=== PATIENT | male | born 1975 | race Caucasian/White ===

== ENCOUNTER 2016-12-24 09:25 | Inpatient (IN) | payer BC, MEDICAID ==
[2016-12-24 10:09] LABS: Hematocrit 41 % (42-52); Hemoglobin 13.6 g/dl (14.0-18.0); Mean Corpuscular HGB Conc 33 g/dl (31-36); Mean Corpuscular Hemoglobin 32 pg (27-31); Mean Corpuscular Volume 96 fL (80-94); Mean Platelet Volume 8 um3 (7.4-10.4); Red Blood Count 4.27 10^6/ul (4.0-5.4); Red Cell Distribution Width 13 % (10.5-15); White Blood Count 14.4 10^3/ul (3.5-10.8)
--- NOTE | 2016-12-24 10:12 | ED ---
Psychiatric Complaint - HPI Summary HPI Summary: Patient arrives for a MHE. History is difficult to obtain from patient d/t flight of ideas, tangential thoughts and vague recent history of arrest. He has multiple abrasions over his right hand, left forearm and legs bilaterally. He states this happened the day before his arrest 2 weeks ago with some "drill bits" as well as tripping this morning over a dog. He states he was arrested for listening to music while his girlfriend wanted to sleep, when probed for more information, he states he doesn't remember why he was arrested. When asked what brings him in, he states "my mother." During examination he continues self-talk and is unable to answer questions directly. He denies pain or health problems. Denies drug or alcohol use although smells of ETOH on arrival. Patient states he is otherwise healthy and takes no medications. Denies urinary sxs, abd pain, extremity pain despite abrasions, PHAM, neck pain, N /V/C/D. No signs of infection around wounds and explained will clean up the wounds to prevent infection. - History Of Current Complaint Chief Complaint: EDMentalHealth Time Seen by Provider: 12/24/16 09:31 Hx Obtained From: Patient Onset/Duration: Gradual Onset Timing: Constant Severity Initially: Moderate Severity Currently: Moderate Character: Manic, Depressed, Frustrated Aggravating Factor(s): Recent Stress Alleviating Factor(s): Nothing Associated Signs And Symptoms: Positive: Hostile, Confused, Paranoid Behavior Has Suicidal: Reports: Thoughts - none currently and no plans - Risk Factor(s) Completed Suicide Risk Factors: Male, White [place] - Allergies/Home Medications Allergies/Adverse Reactions: Allergies Allergy/AdvReac Type Severity Reaction Status Date / Time No Known Allergies Allergy Verified 12/24/16 13:00 Home Medications: Home Medications Metoprolol Tartrate 5 mg PO DAILY 12/24/16 [History Confirmed 12/24/16] PMH/Surg Hx/FS Hx/Imm Hx Previously Healthy: Yes Infectious Disease History: Denies: Traveled Outside the [place] in Last 30 Days - Social History Occupation: Unemployed Lives: With Family Alcohol Use: Rare Hx Substance Use: No Substance Use Type: Reports: None Hx Tobacco Use: Yes Smoking Status (MU): Heavy Every Day Tobacco Smoker Do You Chew or Dip Tobacco: No Have You Smoked in the Last Year: No Review of Systems Constitutional: Negative ENT: Negative Cardiovascular: Negative Respiratory: Negative Genitourinary: Negative Positive: no symptoms reported, see HPI Musculoskeletal: Negative Skin: Negative Positive: Bruising - left forearm, Other - abrasions over right hand Neurological: Negative Positive: Anxious, Depressed All Other Systems Reviewed And Are Negative: Yes Physical Exam Triage Information Reviewed: Yes Vital Signs On Initial Exam: Initial Vitals Temp Pulse Resp BP 98.5 F 82 18 160/101 12/24/16 10:04 12/24/16 10:04 12/24/16 10:04 12/24/16 10:04 Vital Signs Reviewed: Yes Appearance: Positive: Well-Appearing, No Pain Distress, Well-Nourished Skin: Positive: Warm, Skin Color Reflects Adequate Perfusion, Other - abrasions over dorsum of right hand, left leg. left arm with bruising and ecchymosis Head/Face: Positive: Normal Head/Face Inspection Eyes: Positive: EOMI, PALAK, Conjunctiva Clear Neck: Positive: Supple, Nontender Respiratory/Lung Sounds: Positive: Clear to Auscultation, Breath Sounds Present Cardiovascular: Positive: Normal, RRR Musculoskeletal: Positive: Normal, Strength/ROM Intact Neurological: Positive: Normal, Sensory/Motor Intact, Alert, Oriented to Person Place, Time, Facial Symmetry Psychiatric: Positive: Anxious, Other - mood not appropriate - tangential with flight of ideas Diagnostics - Vital Signs Vital Signs Temp Pulse Resp BP 12/24/16 10:04 98.5 F 82 18 160/101 - Laboratory Result Diagrams: 12/24/16 09:34 12/24/16 09:34 Lab Statement: Any lab studies that have been ordered have been reviewed, and results considered in the medical decision making process. Course/Dx - Course Course Of Treatment: Patient with flight of ideas, tangential thoughts, thoughts of suicide although denies current thoughts or plan. Denies HI. Denies ETOH or drug use although smells of alcohol. History is difficult d/t tangential thoughts. Denies pain, health problems and takes no medications. Wounds over right hand and left toe evaluated, cleaned and dressed. No signs of infection. Patient requesting benadryl for erythemaous spots over dorsum of feet bilaterally after arrival. He feels this is an allergic reaction to the cat food he ate earlier this morning. Provider given 25mg benadryl with relief. Assessment/Plan: admission to [facility]. Signed out to Dr. Collazo at 3:30pm. Patient stable and awaiting MHE. - Differential Dx/Clinical Impression Differential Diagnosis/HQI/PQRI: Positive: Alcohol Intoxication, Anxiety, Bipolar Disorder, Depression Provider Diagnosis: Psychosis Discharge - Discharge Plan Condition: Stable Disposition: ADMITTED TO [facility]
[2016-12-24 10:13] LABS: Urine Bacteria Absent (Absent); Urine Bilirubin Negative (Negative); Urine Glucose Negative (Negative); Urine Nitrite Negative (Negative)
[2016-12-24 10:19] LABS: Benzodiazepine Urine Screen None Detected (None Detect)
[2016-12-24 10:22] LABS: ALT 115 U/L (7-52); AST 138 U/L (13-39); Albumin 4.4 g/dL (3.2-5.2); Alkaline Phosphatase 72 U/L (34-104); Anion Gap 11 mmol/L (2-11); BUN/Creatinine Ratio 10.4 (8-20); Blood Urea Nitrogen 10 mg/dL (6-24); CO2 Carbon Dioxide 21 mmol/L (22-32); Calcium 8.9 mg/dL (8.6-10.3); Chloride 102 mmol/L (101-111); EGFR African American 112.1 (>60); EGFR Non-African American 87.2 (>60); Globulin 3.2 g/dL (2-4); Glucose 91 mg/dL (70-100); Potassium 3.6 mmol/L (3.5-5.0); Sodium 134 mmol/L (133-145); Total Protein 7.6 g/dL (6.4-8.9)
[2016-12-24 10:23] LABS: Acetaminophen < 15 mcg/mL; Alcohol 94 mg/dL (<10); Salicylate < 2.50 mg/dL (<30)
[2016-12-24 10:33] LABS: TSH (Thyroid Stimulating Horm) 1.41 mcIU/mL (0.34-5.60)
[2016-12-24] MEDS ORDERED: diPHENhydraMINE PO* 25 MG PO ONE (12:08)
[2016-12-24] MEDS ORDERED: Nicotine Inhaler* 10 MG AMP INH ONE (12:56)
[2016-12-24] MEDS ORDERED: Mouth Piece, Nicotine* 1 EACH CARTRIDGE INH PRN (12:56)
--- NOTE | 2016-12-24 17:32 | ED ---
Ish [place] Janilya, scribed for Trace Collazo MD on 12/24/16 at 1717 . Progress - Progress Note Progress Note: Pt was evaluated for mental health by Dr. De Souza. He will admit pt into his services. Pt's diagnosis is psychosis. - Consult/PCP Time Called: 15:02 Course/Dx - Course Course Of Treatment: Patient with flight of ideas, tangential thoughts, thoughts of suicide although denies current thoughts or plan. Denies HI. Denies ETOH or drug use although smells of alcohol. History is difficult d/t tangential thoughts. Denies pain, health problems and takes no medications. Wounds over right hand and left toe evaluated. No signs of infection. Will clean and dress to prevent infection. Patient arrested. - Diagnoses Provider Diagnoses: Psychosis Discharge - Discharge Plan Condition: Stable Disposition: ADMITTED TO [facility] Referrals: No Primary Care Phys,NOPCP [Primary Care Provider] - The documentation as recorded by the Ish jay Janilya accurately reflects the service I personally performed and the decisions made by , Trace Collazo MD.
[2016-12-24] MEDS ORDERED: Acetaminophen TAB* 325 MG PO PRN (20:38)
[2016-12-24] MEDS ORDERED: Al Hydrox/Mg Hydrox/Simet LIQ* 30 ML UDC PO PRN (20:38)
[2016-12-24] MEDS: Nicotine Inhaler* 10 MG AMP INH PRN ×2 (20:54→23:15)
[2016-12-24] MEDS: Mouth Piece, Nicotine* 1 EACH CARTRIDGE INH SCH ×2 (20:54→23:15)
[2016-12-24] MEDS: Nicotine GUM* 2 MG PO PRN (23:15)
[2016-12-24] MEDS: chlorproMAZINE TAB* 50 MG Q6H PRN AGITATION PO (23:27)
[2016-12-25] MEDS: Vitamin THERAPEUTIC TAB PO SCH (07:59)
[2016-12-25] MEDS: Nicotine Inhaler* 10 MG AMP INH PRN ×3 (09:03→16:34)
--- NOTE | 2016-12-25 15:18 | ADMNOTE ---
Identification - Identify Employment Status: Employed Hx Psychiatric Hospitalization: Yes - PRevious hospitalizations Prior Psychiatric Diagnosis: Bipolar disorder with psychotic features History - Objective HPI: Patient brought to hospital due to auditory hallucinations. He presented in the ED as disorganized. He was also observed speaking to his father "Ulysses" when he was being evaluated. He also presented as both agitated and irritated. During todays clinical interview, he admitted to auditory hallucinations that interfered with "thinking." He also admitted to considerable ETOH and cannabis use. Exam Appearance: Thin Framed Hygiene: Normal - Disheveled Psychomotor Activities: Normal Exhibits Abnormal Movement: No Attitude and Relatedness: Superficially Cooperative Eye Contact: Fair - Speech Quality: Unpressured Latencies: Normal Quantity: Appropriate - Answered questions with minimal elaboration Patient's Decription of Mood: "Great" Observed Affect: Unvariable - constricted Patient's Thought Process: Disorganized, Over Inclusive, Impoverished Thought Content: No Passive Wish, No Suicidal Planning, No Homicidal Ideation, No Paranoid Ideation Experiencing Hallucinations: Yes Type of Hallucinations: Visual: No, Auditory: Yes, Command: No - Denies Orientation: Yes Intact, Yes Orientated to Time, Yes Orientated to Place, Yes Orientated to Person Impulse Control: Tenuous Insight and Judgement: Impaired Impression - Impression Clinical Impression: 41 year old male who presents to [facility] with auditory hallucinations and disorganized thought processes. Unable to care for self at time of admission, admitted under 9:39 status. Admitted for psychiatric stabilization. Plan - Treatment Plan Continued Medication Management: Consider Medication Medications: Current Medications Acetaminophen (Tylenol Tab*) 650 mg PO Q4H PRN PRN Reason: PAIN or TEMP > 101 F Al Hydrox/Mg Hydrox/Simethicone (Maalox Plus*) 30 ml PO Q4H PRN PRN Reason: INDIGESTION Chlorpromazine HCl (Thorazine Tab*) 50 mg PO Q6H PRN PRN Reason: AGITATION Last Admin: 12/24/16 23:27 Dose: 50 mg Device (Nicotine Mouth Piece*) 1 each INH .USE WITH NICOTROL PRN PRN Reason: CRAVING Last Admin: 12/24/16 13:31 Dose: 1 each Device (Nicotine Mouth Piece*) 1 each INH .CARTRIDGE JOO Last Admin: 12/24/16 23:15 Dose: 1 each Diphenhydramine HCl (Benadryl Po*) 50 mg PO BEDTIME PRN PRN Reason: INSOMNIA Last Admin: 12/24/16 23:27 Dose: 50 mg Multivitamins (Theragran Tab*) 1 tab PO DAILY JOO Last Admin: 12/25/16 07:59 Dose: 1 tab Nicotine (Nicotine Inhaler*) 10 mg INH Q2H PRN PRN Reason: CRAVING Last Admin: 12/25/16 12:40 Dose: 10 mg Nicotine Polacrilex (Nicotine Gum*) 2 mg PO Q2H PRN PRN Reason: CRAVING Last Admin: 12/24/16 23:15 Dose: 2 mg - Discharge Plan Discharge Plan: Inpatient Hospitalization
[2016-12-25] MEDS: Nicotine GUM* 2 MG PO PRN ×2 (18:39→23:22)
--- NOTE | 2016-12-25 22:11 | HP ---
Amended report to enter co-signature on report. INITIAL PSYCHIATRIC ASSESSMENT: DATE OF ADMISSION: 12/24/16 SUPERVISING/ATTENDING PSYCHIATRIST FOR THIS CASE: Mike De Souza MD IDENTIFYING INFORMATION: The patient is a 41-year-old white male admitted to this facility on 12/24/16. Admitting status is 9.39. The patient was seen and examined. The chart was reviewed and the case was discussed with clinical staff available at the time of the visit. CHIEF COMPLAINT/REASON FOR ADMISSION: The patient states "repeated cases of what is going on, you know boredom." HISTORY OF PRESENT ILLNESS: The patient was brought to [facility] via private vehicle. Apparently during the initial psychiatric assessment, he was unable to provide information secondary to impairment and disorganization. He was apparently experiencing auditory hallucinations and was observed by the emergency department personnel to be speaking to his father during the psychiatric evaluation. He became quite agitated and irritable during the evaluation. Today during the clinical interview, the patient was somewhat aloof as to the nature of his presenting symptoms and what had brought him to the hospital. 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 According to past records from 2009, the patient was hospitalized here at [facility] and again in 2007. At that time, he was apparently diagnosed with bipolar disorder and was experiencing manic psychosis. He also carries a diagnosis of attention deficit hyperactivity disorder and currently sees Dr. Zuñiga. He denies any history of suicide attempt. FAMILY PSYCHIATRIC HISTORY: The patient denied the same; however, according to old records, the patient's mother was diagnosed with ADHD. His father had problems with alcohol addiction and the grandfather was diagnosed with bipolar disorder. PSYCHOSOCIAL HISTORY: The patient is from [place], [place]. He has lived in many places including [place] and [facility] as well as [place]. He graduated high school, attended some college at [employer], where he stated he was studying "[employer]." Per old records, the patient has a twin brother who was injured apparently in childbirth and was disabled, eventually dying at age 20. 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 He does report that he is . SUBSTANCE USE HISTORY: The patient does admit that he uses alcohol 7 days a week. He will have a few "scotches and beers." He also admits to daily marijuana use and occasional cocaine use. He denies any other illicit drugs. According to the past psychiatric assessment completed by Dr. Goodne in 2009, the patient began using marijuana at approximately age 24. REVIEW OF SYSTEMS: General: The patient denies fever, chills, or night sweats. Sleep: He reports that he has good sleep. Energy: He reports good energy. Appetite: He states that his appetite is decreased without his marijuana. HEENT: He currently denying any changes in vision; however, he does report that he experienced loss of hearing in his left ear last summer, which eventually did return. Cardiovascular: He denies chest pain or palpitations. Pulmonary: He denies shortness of breath. Gastrointestinal: He denies abdominal pain, nausea, vomiting, or diarrhea. Genitourinary/Reproductive: He denies dysuria or associated difficulty. Neurologically, he is denying numbness , tingling or paresthesias. Endocrine//Hematopoietic/Lymphatic: He denies any issues. PHYSICAL EXAMINATION GENERAL APPEARANCE: The patient is alert and cooperative, appears to be in no acute distress at the time of the exam. HEENT: Head is normocephalic, atraumatic. NECK: Appears normal on inspection. RESPIRATORY: No respiratory distress. Occasional expiratory wheeze noted, which seem to clear when the patient coughed or cleared his throat. CARDIAC: Rate is 106. No rubs or gallops noted. ABDOMEN: Nontender, nondistended, symmetrical without evidence of distention or guarding. MUSCULOSKELETAL: The patient demonstrates full range of motion. Extremities: Not edematous. NEUROLOGIC: The patient is alert and oriented x3 with no focal neuro deficits. SKIN: The patient has multiple scars and lesions over hands, which he describes came from "working in construction." REVIEW OF LABORATORY DATA: Undertaken at this time, the following abnormals are noted: White blood cell count is elevated at 14.4, hemoglobin is low at 13.6, hematocrit is low at 41, MCV is elevated at 96, MCH is elevated at 32. Neutrophil percentage is elevated at 84, lymphocyte percentage is low at 7.9, absolute neutrophil count is elevated at 12.1, absolute monos elevated at 1.1, carbon dioxide is low at 21, total bilirubin is elevated at 1.3, AST is elevated 138, ALT is elevated at 115. Urinalysis reveals 1+ urine protein, trace urine ketones and 1+ urine blood, urine rbc's 1+, hyaline casts are present. Urine toxicology indicates presumptive positive for cannabinoids. MENTAL STATUS EXAM: The patient is of slender build and appears older than his stated age with fair grooming and hygiene noted. He is wearing blue jeans and a button up shirt. On gross examination, he appears to have no overt physical deformities. Attitude towards the examiner was passively cooperative. He does ambulate with a steady gait. He did not appear to be demonstrating any noteworthy mannerisms, gestures, or tics. His activity level appeared to be within normal limits with no overt evidence of psychomotor excitation or retardation noted. He is is alert without evidence of confusion to person, place, time, or event. Speech was clear, goal directed and spontaneous; however , minimal. He did respond to questions, but was not forthcoming or elaborative in responses. The patient did make good eye contact. Self-reported mood is euthymic. The patient is denying anxiety at this time. Affect somewhat constricted. The patient is denying visual hallucinations; however, when questioned about auditory hallucinations, he did admit to hearing "clicking and clacking" which he states interferes with his thought processes. When questioned regarding paranoia, he denied same. He did not appear to be demonstrating any overt delusional processes. Judgment and insight are impaired. Intellectual ability: General fund of knowledge roughly average. He is currently denying suicidal and/or homicidal ideation and is future oriented. CLINICAL IMPRESSION: The patient is a 41-year-old white male who presented to the emergency department on a voluntary status secondary to auditory hallucination and what appeared to be visual hallucination as well as disorganized thought processes. He was admitted under 9.39 status secondary to the aforementioned symptoms as he was clearly at that time incapable of caring for himself. The patient does admit to use of Adderall, which he receives from a local psychiatrist. It is unclear as to whether or not he is taking it as prescribed; however, and he also has not been taking any of his prescribed medications per collateral contact obtained from information given by the patient's mother to nursing staff. ADMITTING DIAGNOSIS: Rule out bipolar disorder with psychotic features versus substance-induced psychosis. PLAN OF TREATMENT: Admit to behavioral services unit. Diet will be regular. Vital signs per unit protocol. Activity as tolerated with restrictions to the unit. The patient will participate in treatment planning activities, individual , group, and milieu therapy as well as medication management sessions and discharge planning until he is stable or referred to a higher level of care. TREATMENT GOAL: Stabilization. PROGNOSIS: Fair. ESTIMATED LENGTH OF STAY: 5 to 7 days. DISCHARGE CRITERIA: The patient will be discharged when he is no longer a risk to himself or others and has met the criteria set forth by the treatment team for discharge. The case was reviewed and discussed with Dr. De Souza who concurred with assessment, clinical impression as well as initial plan of [place] [id number]/[facility] #: [id number] CECILIO
[2016-12-25] MEDS: chlorproMAZINE TAB* 50 MG Q6H PRN AGITATION PO (23:42)
[2016-12-26] MEDS: Nicotine GUM* 2 MG PO PRN ×3 (07:18→13:21)
[2016-12-26] MEDS: Vitamin THERAPEUTIC TAB PO SCH (10:02)
--- NOTE | 2016-12-26 14:46 | PN ---
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 He reports he is worried about contamination from plastic of water in plastic bottles. He reports he only uses Adderall when he is working, and that his last use was 4.6.17. He reports that he spent several hours in [facility] after police responded to a domestic dispute with his in [place] on about that date. He tells me that he gets a statin and metoprolol on prescription from providers at [facility] in [place], and would like to resume these medications. [facility] reports that these are: simvastatin 20 mg daily and metoprolol tartrate 12.5 mg bid from Cheyanne Ravi MD, and Adderall 10 mg tid from Mitchell Zuñiga MD. Guillermo reports that he does not overuse Adderall, and that he only uses it when he is working, and that it helps him focus without notable side effects. He agrees to allow us to gather collateral from his mother and friends in [place]. Objective - Appearance Appearance: Well Developed/Nourished, Healthy Appearing Dysmorphic Features: No Hygiene: Normal Grooming: Fairly Well Kept - Behavior Psychomotor Activities: Normal Exhibits Abnormal Movement: No - Attitude and Relatedness Attitude and Relatedness: Cooperative Eye Contact: Poor - Speech Quality: Unpressured Latencies: Normal Quantity: Appropriate - Mood Patient's Decription of Mood: "Good" - Affect Observed Affect: Fair Affect Consistent with: Euthymia - Thought Process Patient's Thought Process: Coherent, Circumstantial Thought Content: No Passive Wish, No Suicidal Planning, No Homicidal Ideation, No Paranoid Ideation - Sensorium Experiencing Hallucinations: Yes Type of Hallucinations: Visual: No, Auditory: Yes - Father's voice, Command: No - Level of Consciousness Level of Consciousness: Alert Orientation: Yes Intact, Yes Orientated to Time, Yes Orientated to Place, Yes Orientated to Person - Impulse Control Impulse Control: Intact - Insight and Judgement Insight and Judgement: Poor - Group Participation Particating in Group Activities: Yes - Medication Management Medication Management Adherence: Yes Assessment - Assessment Merits Inpatient Hospitalization: For Immediate Safety, For Stabilization, For Discharge Planning Inpatient DSM-IV Dx: Psychosis NOS. r/o substance-induced psychosis Clinical Impression: Guillermo Dobson is a 41 year-old man admitted due to disorganized thought and behavior. He reports a history of abuse of alcohol and marijuana. He remains moderately disorganized today. He denies any dangerous intent or plan. He reports a restraining order in place from his girlfriend or , so contacting her might put him in jeopardy. We will be gathering collateral from his mother and friends as he permits. Continued hospitalization is indicated until he has adequately organized thought and behavior and thereby reduced risk of harm due to inadequate self-care. Plan - Plan Treatment Plan: Name: GUILLERMO DOBSON Birthdate: 1975 [id number] Gather collateral. Restart statin, metoprolol. Monitor MS and safety. Encourage groups and milieu. Medications: Current Medications Acetaminophen (Tylenol Tab*) 650 mg PO Q4H PRN PRN Reason: PAIN or TEMP > 101 F Al Hydrox/Mg Hydrox/Simethicone (Maalox Plus*) 30 ml PO Q4H PRN PRN Reason: INDIGESTION Chlorpromazine HCl (Thorazine Tab*) 50 mg PO Q6H PRN PRN Reason: AGITATION Last Admin: 12/25/16 23:42 Dose: 50 mg Device (Nicotine Mouth Piece*) 1 each INH .USE WITH NICOTROL PRN PRN Reason: CRAVING Last Admin: 12/24/16 13:31 Dose: 1 each Device (Nicotine Mouth Piece*) 1 each INH .CARTRIDGE JOO Last Admin: 12/24/16 23:15 Dose: 1 each Diphenhydramine HCl (Benadryl Po*) 50 mg PO BEDTIME PRN PRN Reason: INSOMNIA Last Admin: 12/25/16 23:42 Dose: 50 mg Multivitamins (Theragran Tab*) 1 tab PO DAILY JOO Last Admin: 12/26/16 10:02 Dose: 1 tab Nicotine (Nicotine Inhaler*) 10 mg INH Q2H PRN PRN Reason: CRAVING Last Admin: 12/25/16 16:34 Dose: 10 mg Nicotine Polacrilex (Nicotine Gum*) 2 mg PO Q2H PRN PRN Reason: CRAVING Last Admin: 12/26/16 13:21 Dose: 2 mg - Discharge Plan Discharge Plan: Outpatient Follow Up
[2016-12-26] MEDS: Nicotine Inhaler* 10 MG AMP INH PRN (15:47)
[2016-12-26] MEDS: Atorvastatin* 10 MG TAB PO SCH (20:25)
[2016-12-26] MEDS: Metoprolol Tartrate TAB* 25 MG PO SCH (22:30)
[2016-12-27] MEDS: chlorproMAZINE TAB* 50 MG Q6H PRN AGITATION PO (00:29)
[2016-12-27] MEDS: Nicotine Inhaler* 10 MG AMP INH PRN ×5 (01:15→21:58)
[2016-12-27] MEDS: Vitamin THERAPEUTIC TAB PO SCH (09:17)
[2016-12-27] MEDS: Metoprolol Tartrate TAB* 25 MG PO SCH ×2 (09:17→21:56)
--- NOTE | 2016-12-27 10:58 | PN ---
Subjective - Subjective Service Type: 30205 Hosp care 25 min moderate complexity Subjective: Maxi reports continued auditory hallucinations, saying he prefers not to give detailed report of them as he feels he will benefit from simply ignoring them. He gives equivocal report of possible paranoid ideation, with the same plan to ignore these thoughts. He declines a trial of antipsychotic, saying he prefers instead to restart lithium, which he recalls having taken twice daily with a little pill in the morning and a large pill at bedtime. He voiced understanding and acceptance of main toxicity risks of lithium of renal and thyroid damage, saying he expects benefits that will outweigh these risks. He reports having done well in the past taking 5 mg of Adderall every morning ' like a cup of coffee'. He reports that when he was at [place], he took Ritalin , which gave him a high, but that the Adderall at the dose he takes it does not give him a high. He feels that Dr Zuñiga has been a responsible prescriber for him, but agrees that he might benefit from being in the care of a clinic with coordination between multiple providers. He hopes to stay in [place] after he closes on a house here. Complains of pain from sciatica. Objective - Appearance Appearance: Healthy Appearing Dysmorphic Features: No Hygiene: Normal Grooming: Well Kept - Behavior Psychomotor Activities: Normal Exhibits Abnormal Movement: No - Attitude and Relatedness Attitude and Relatedness: Guarded - , politely, and cooperative Eye Contact: Good - Speech Quality: Unpressured Latencies: Normal Quantity: Appropriate - Mood Patient's Decription of Mood: "Okay" - Affect Observed Affect: Fair Affect Consistent with: Euthymia - Thought Process Patient's Thought Process: Coherent, Goal Directed - less disorganized in our meeting today Thought Content: Yes Paranoid Ideation - equivocally stated, No Passive Wish, No Suicidal Planning, No Homicidal Ideation - Sensorium Type of Hallucinations: Visual: No, Auditory: Yes - did not elaborate on content , Command: No - Level of Consciousness Level of Consciousness: Alert Orientation: Yes Intact, Yes Orientated to Time, Yes Orientated to Place, Yes Orientated to Person - Impulse Control Impulse Control: Intact - Insight and Judgement Insight and Judgement: Poor - Group Participation Particating in Group Activities: Yes Assessment - Assessment Merits Inpatient Hospitalization: For Stabilization, For Discharge Planning Inpatient DSM-IV Dx: Psychosis NOS. r/o substance-induced psychosis. reported today history of bipolar disorder Clinical Impression: Assumed care on day 2, 12.26.17: Maxi Dobson is a 41 year-old man admitted due to disorganized thought and behavior. He reports a history of abuse of alcohol and marijuana. He remains moderately disorganized today. He denies any dangerous intent or plan. He reports a restraining order in place from his girlfriend or , so contacting her might put him in jeopardy. We will be gathering collateral from his mother and friends as he permits. Continued hospitalization is indicated until he has adequately organized thought and behavior and thereby reduced risk of harm due to inadequate self-care. Day 3, 12.27.17: Maxi requests to start lithium, declines for now antipsychotic medications despite continued AH/?PI. More organized in conversation with me today. Plan - Plan Treatment Plan: Name: MAXI DOBSON Birthdate: 1975 [id number] Add lithium 300 mg bid (Cr 0.96, TSH 1.41). Gather collateral. Restart statin , metoprolol. Monitor MS and safety. Encourage groups and milieu. Continued Medication Management: Different Medication Medications: Current Medications Acetaminophen (Tylenol Tab*) 650 mg PO Q4H PRN PRN Reason: PAIN or TEMP > 101 F Al Hydrox/Mg Hydrox/Simethicone (Maalox Plus*) 30 ml PO Q4H PRN PRN Reason: INDIGESTION Atorvastatin Calcium (Lipitor*) 10 mg PO 1700 [facility] Last Admin: 12/26/16 20:25 Dose: 10 mg Chlorpromazine HCl (Thorazine Tab*) 50 mg PO Q6H PRN PRN Reason: AGITATION Last Admin: 12/27/16 00:29 Dose: 50 mg Device (Nicotine Mouth Piece*) 1 each INH .USE WITH NICOTROL PRN PRN Reason: CRAVING Last Admin: 12/24/16 13:31 Dose: 1 each Device (Nicotine Mouth Piece*) 1 each INH .CARTRIDGE [facility] Last Admin: 12/24/16 23:15 Dose: 1 each Diphenhydramine HCl (Benadryl Po*) 50 mg PO BEDTIME PRN PRN Reason: INSOMNIA Last Admin: 12/27/16 00:29 Dose: 50 mg Metoprolol Tartrate (Lopressor Tab*) 12.5 mg PO BID [facility] Last Admin: 12/27/16 09:17 Dose: 12.5 mg Multivitamins (Theragran Tab*) 1 tab PO DAILY [facility] Last Admin: 12/27/16 09:17 Dose: 1 tab Nicotine (Nicotine Inhaler*) 10 mg INH Q2H PRN PRN Reason: CRAVING Last Admin: 12/27/16 09:16 Dose: 10 mg Nicotine Polacrilex (Nicotine Gum*) 2 mg PO Q2H PRN PRN Reason: CRAVING Last Admin: 12/26/16 13:21 Dose: 2 mg - Discharge Plan Discharge Plan: Outpatient Follow Up Outpatient Program: [facility]
[2016-12-27] MEDS: Atorvastatin* 10 MG TAB PO SCH (16:50)
[2016-12-27] MEDS: Mouth Piece, Nicotine* 1 EACH CARTRIDGE INH SCH (16:52)
[2016-12-27] MEDS: Lithium Carbonate TAB* 300 MG PO SCH (21:57)
[2016-12-28] MEDS: chlorproMAZINE TAB* 50 MG Q6H PRN AGITATION PO (00:30)
[2016-12-28] MEDS: Lithium Carbonate TAB* 300 MG PO SCH ×2 (09:20→20:41)
[2016-12-28] MEDS: Vitamin THERAPEUTIC TAB PO SCH (09:20)
[2016-12-28] MEDS: Metoprolol Tartrate TAB* 25 MG PO SCH ×2 (09:20→21:11)
[2016-12-28] MEDS: Nicotine Inhaler* 10 MG AMP INH PRN ×3 (09:22→20:53)
--- NOTE | 2016-12-28 14:13 | PN ---
Subjective - Subjective Service Type: 21028 Hosp care 25 min moderate complexity Subjective: Received call this morning from Maxi' mother. Spoke with her today. She reports: 1. First signs of mental illness late teens with odd behaviors such as driving off without paying for gas, episodes of profligate spending. 2. 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 3. She thinks stimulants have been irresponsibly prescribed by both Dr Spence and Dr Zuñiga, in that he was not adequately monitored while taking them and they may have worsened his mental illness, which she believes is schizoaffective disorder bipolar type. 4. She estimates Maxi has had about 9 psychotic breaks in his life. 5. 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 6. She could meet with us here Monday. 7. She does not want her son to be under the care of Dr Zuñiga and called him to tell him this. She feels good about follow up care at [facility]. Maxi reports continued AH, last occurrence last evening around bedtime. He remains politely guarded, so report lacks details. He reports paranoia of ' people out to get [him]'. He had odd/paranoid behavior last evening, including throwing out all his toiletries and sleeping at the door to the nurse's station. He refused lithium last night, saying he would take it this morning, then did not take it this morning. He says he does not want to take an atypical antipsychotic medication because it sends too much profit to pharmaceutical companies. He agrees to take lithium and chlorpromazine. Objective - Appearance Appearance: Healthy Appearing Dysmorphic Features: No Hygiene: Normal Grooming: Well Kept - Behavior Psychomotor Activities: Normal Exhibits Abnormal Movement: No - Attitude and Relatedness Attitude and Relatedness: Guarded Eye Contact: Fair - Speech Quality: Unpressured Latencies: Normal Quantity: Appropriate - Mood Patient's Decription of Mood: "Good" - Affect Observed Affect: Fair Affect Consistent with: Euthymia - with notable anxiety too - Thought Process Patient's Thought Process: Coherent, Goal Directed - mostly, Disorganized - versus guarded at other times Thought Content: Yes Paranoid Ideation, No Passive Wish, No Suicidal Planning, No Homicidal Ideation - Sensorium Experiencing Hallucinations: Yes Type of Hallucinations: Visual: No, Auditory: Yes, Command: No - Level of Consciousness Level of Consciousness: Alert Orientation: Yes Intact, Yes Orientated to Time, Yes Orientated to Place, Yes Orientated to Person - Impulse Control Impulse Control: Intact - Insight and Judgement Insight and Judgement: Poor - Group Participation Particating in Group Activities: No Group Participation Comments: declines most groups - Medication Management Medication Management Adherence: Partial - declines lithium, says he wants to get good sleep using Thorazine instead and see if he gets better that way Assessment - Assessment Merits Inpatient Hospitalization: For Stabilization, For Discharge Planning Inpatient DSM-IV Dx: Psychosis NOS. r/o substance-induced psychosis. reported today history of bipolar disorder Clinical Impression: Assumed care on day 2, 17: aMxi Dobson is a 41 year-old man admitted due to disorganized thought and behavior. He reports a history of abuse of alcohol and marijuana. He remains moderately disorganized today. He denies any dangerous intent or plan. He reports a restraining order in place from his girlfriend or , so contacting her might put him in jeopardy. We will be gathering collateral from his mother and friends as he permits. Continued hospitalization is indicated until he has adequately organized thought and behavior and thereby reduced risk of harm due to inadequate self-care. Day 3, 12.27.17: Maxi requests to start lithium, declines for now antipsychotic medications despite continued AH/?PI. More organized in conversation with me today. Day 4, 17: Maxi continues to refuse effective medications against his psychotic presentation. He remains politely guarded. He is not attending groups. He feels he can get better by getting adequate sleep using Thorazine, despite having yesterday agreed to lithium as a medication that had been effective for him in the past. Plan - Plan Treatment Plan: Name: MAXI DOBSON Birthdate: 1975 [id number] Encourage compliance with lithium 300 mg bid (Cr 0.96, TSH 1.41). Monitor MS and safety. Encourage groups and milieu. Revisit antipsychotic regimen with Maxi, with possibility he can agree to Abilify, which he has taken in the past. Medications: Current Medications Acetaminophen (Tylenol Tab*) 650 mg PO Q4H PRN PRN Reason: PAIN or TEMP > 101 F Al Hydrox/Mg Hydrox/Simethicone (Maalox Plus*) 30 ml PO Q4H PRN PRN Reason: INDIGESTION Atorvastatin Calcium (Lipitor*) 10 mg PO 1700 [facility] Last Admin: 12/27/16 16:50 Dose: 10 mg Chlorpromazine HCl (Thorazine Tab*) 50 mg PO Q6H PRN PRN Reason: AGITATION Last Admin: 12/28/16 00:30 Dose: 50 mg Device (Nicotine Mouth Piece*) 1 each INH .USE WITH NICOTROL PRN PRN Reason: CRAVING Last Admin: 12/24/16 13:31 Dose: 1 each Device (Nicotine Mouth Piece*) 1 each INH .CARTRIDGE [facility] Last Admin: 12/27/16 16:52 Dose: 1 each Diphenhydramine HCl (Benadryl Po*) 50 mg PO BEDTIME PRN PRN Reason: INSOMNIA Last Admin: 12/28/16 00:30 Dose: 50 mg [place] Carbonate ([place] Carbonate Tab*) 300 mg PO BID [facility] Last Admin: 12/28/16 09:20 Dose: Not Given Metoprolol Tartrate (Lopressor Tab*) 12.5 mg PO BID [facility] Last Admin: 12/28/16 09:20 Dose: Not Given Multivitamins (Theragran Tab*) 1 tab PO DAILY [facility] Last Admin: 12/28/16 09:20 Dose: 1 tab Nicotine (Nicotine Inhaler*) 10 mg INH Q2H PRN PRN Reason: CRAVING Last Admin: 12/28/16 09:22 Dose: 10 mg Nicotine Polacrilex (Nicotine Gum*) 2 mg PO Q2H PRN PRN Reason: CRAVING Last Admin: 12/26/16 13:21 Dose: 2 mg - Discharge Plan Discharge Plan: [facility]
[2016-12-28] MEDS: Atorvastatin* 10 MG TAB PO SCH (16:35)
[2016-12-29] MEDS: chlorproMAZINE TAB* 50 MG Q6H PRN AGITATION PO ×2 (00:05→21:24)
[2016-12-29] MEDS: Mouth Piece, Nicotine* 1 EACH CARTRIDGE INH SCH (00:05)
[2016-12-29] MEDS: Nicotine Inhaler* 10 MG AMP INH PRN ×7 (00:05→20:48)
[2016-12-29] MEDS: Nicotine GUM* 2 MG PO PRN ×2 (00:55→21:07)
[2016-12-29] MEDS: Vitamin THERAPEUTIC TAB PO SCH (08:27)
[2016-12-29] MEDS: Lithium Carbonate TAB* 300 MG PO SCH ×2 (08:28→20:47)
[2016-12-29] MEDS: Metoprolol Tartrate TAB* 25 MG PO SCH ×2 (08:28→20:47)
--- NOTE | 2016-12-29 11:56 | PN ---
MHU: Group Therapy Note - Service Type Service Type: 05371 Group Psychotherapy - Cognitive Behavioral Group Therapy ( CBT):Patient presented in CBT programming as disorganized and disruptive in discussion and needed repeated redirection to attend to presented materials.
--- NOTE | 2016-12-29 17:12 | PN ---
Subjective - Subjective Service Type: 50507 Hosp care 15 min low complexity Subjective: Anival reports that he was disruptive in Dr Mcdonald's group last night because he was responding to voices. He denies AH/PI today. He has denied dangerous intent/plan since before admission. He requested reduced Thorazine dose, but ultimately agreed to continue at 50 mg. He declined change to Seroquel. Objective - Appearance Appearance: Well Developed/Nourished Dysmorphic Features: No Hygiene: Normal Grooming: Disheveled - Behavior Psychomotor Activities: Normal Exhibits Abnormal Movement: No - Attitude and Relatedness Attitude and Relatedness: Guarded Eye Contact: Good - Speech Quality: Unpressured Latencies: Normal Quantity: Terse - Mood Patient's Decription of Mood: "Okay" - Affect Observed Affect: Constricted Affect Consistent with: Euthymia - Thought Process Patient's Thought Process: Coherent, Goal Directed Thought Content: No Passive Wish, No Suicidal Planning, No Homicidal Ideation, No Paranoid Ideation - Sensorium Experiencing Hallucinations: No, Sensorium is Clear Type of Hallucinations: Visual: No, Auditory: No, Command: No - Level of Consciousness Level of Consciousness: Alert Orientation: Yes Intact, Yes Orientated to Time, Yes Orientated to Place, Yes Orientated to Person - Impulse Control Impulse Control: Intact - Insight and Judgement Insight and Judgement: Poor - Group Participation Particating in Group Activities: Yes Group Participation Comments: but few - Medication Management Medication Management Adherence: Yes - since last evening Assessment - Assessment Merits Inpatient Hospitalization: For Stabilization, For Ongoing Evaluation, Consolidate Improvements, For Discharge Planning Inpatient DSM-IV Dx: Psychosis NOS. r/o substance-induced psychosis. reported today history of bipolar disorder Clinical Impression: Assumed care on day 212.26.16: Maxi Dobson is a 41 year-old man admitted due to disorganized thought and behavior. He reports a history of abuse of alcohol and marijuana. He remains moderately disorganized today. He denies any dangerous intent or plan. He reports a restraining order in place from his girlfriend or , so contacting her might put him in jeopardy. We will be gathering collateral from his mother and friends as he permits. Continued hospitalization is indicated until he has adequately organized thought and behavior and thereby reduced risk of harm due to inadequate self-care. Day 312.27.16: Maxi requests to start lithium, declines for now antipsychotic medications despite continued AH/?PI. More organized in conversation with me today. Day 4, 12.28.16: Maxi continues to refuse effective medications against his psychotic presentation. He remains politely guarded. He is not attending groups. He feels he can get better by getting adequate sleep using Thorazine, despite having yesterday agreed to lithium as a medication that had been effective for him in the past. Day 12.29.16: Maxi reports today remission of AH/PI. He presents still somewhat guarded and poorly engaged in the interview. Plan - Plan Treatment Plan: Name: MAXI DOBSON Birthdate: 1975 [id number] Encourage compliance with lithium 300 mg bid (Cr 0.96, TSH 1.41). Monitor MS and safety. Encourage groups and milieu. Revisit antipsychotic regimen with Maxi, with possibility he can agree to Abilify, which he has taken in the past. Family meeting with his mother tomorrow. Medications: Current Medications Acetaminophen (Tylenol Tab*) 650 mg PO Q4H PRN PRN Reason: PAIN or TEMP > 101 F Al Hydrox/Mg Hydrox/Simethicone (Maalox Plus*) 30 ml PO Q4H PRN PRN Reason: INDIGESTION Atorvastatin Calcium (Lipitor*) 10 mg PO 1700 [facility] Last Admin: 12/28/16 16:35 Dose: 10 mg Chlorpromazine HCl (Thorazine Tab*) 50 mg PO Q6H PRN PRN Reason: AGITATION Last Admin: 12/29/16 00:05 Dose: 50 mg Device (Nicotine Mouth Piece*) 1 each INH .USE WITH NICOTROL PRN PRN Reason: CRAVING Last Admin: 12/24/16 13:31 Dose: 1 each Device (Nicotine Mouth Piece*) 1 each INH .CARTRIDGE [facility] Last Admin: 12/29/16 00:05 Dose: 1 each Diphenhydramine HCl (Benadryl Po*) 50 mg PO BEDTIME PRN PRN Reason: INSOMNIA Last Admin: 12/28/16 20:44 Dose: 50 mg [place] Carbonate ([place] Carbonate Tab*) 300 mg PO BID [facility] Last Admin: 12/29/16 08:28 Dose: 300 mg Metoprolol Tartrate (Lopressor Tab*) 12.5 mg PO BID [facility] Last Admin: 12/29/16 08:28 Dose: 12.5 mg Multivitamins (Theragran Tab*) 1 tab PO DAILY [facility] Last Admin: 12/29/16 08:27 Dose: 1 tab Nicotine (Nicotine Inhaler*) 10 mg INH Q2H PRN PRN Reason: CRAVING Last Admin: 12/29/16 14:24 Dose: 10 mg Nicotine Polacrilex (Nicotine Gum*) 2 mg PO Q2H PRN PRN Reason: CRAVING Last Admin: 12/29/16 00:55 Dose: 2 mg - Discharge Plan Discharge Plan: Outpatient Follow Up
[2016-12-29] MEDS: Atorvastatin* 10 MG TAB PO SCH (17:16)
[2016-12-29] MEDS ORDERED: diPHENhydraMINE PO* 50 MG PO ONE (23:20)
[2016-12-29] MEDS ORDERED: diPHENhydraMINE PO* 50 MG ONE (23:32)
[2016-12-30] MEDS: Nicotine Inhaler* 10 MG AMP INH PRN ×5 (00:28→20:19)
[2016-12-30] MEDS: Vitamin THERAPEUTIC TAB PO SCH (08:16)
[2016-12-30] MEDS: Metoprolol Tartrate TAB* 25 MG PO SCH ×2 (08:17→20:19)
[2016-12-30] MEDS: Lithium Carbonate TAB* 300 MG PO SCH ×2 (08:17→20:19)
[2016-12-30] MEDS: Mouth Piece, Nicotine* 1 EACH CARTRIDGE INH SCH (08:17)
--- NOTE | 2016-12-30 11:17 | PN ---
MHU: Group Therapy Note - Service Type Service Type: 65592 Group Psychotherapy - Cognitive Behavioral Group Therapy ( CBT):Patient was attentive and participatory in CBT programming this morning, and remained in good behavioral control. Patient expressed positive insights regarding relevant treatment interventions and goals.
[2016-12-30] MEDS: Atorvastatin* 10 MG TAB PO SCH (16:11)
[2016-12-31] MEDS: Nicotine Inhaler* 10 MG AMP INH PRN ×3 (00:04→16:39)
[2016-12-31] MEDS: Vitamin THERAPEUTIC TAB PO SCH (09:25)
[2016-12-31] MEDS: Metoprolol Tartrate TAB* 25 MG PO SCH ×2 (09:25→20:56)
[2016-12-31] MEDS: Lithium Carbonate TAB* 300 MG PO SCH ×2 (10:36→20:24)
[2016-12-31] MEDS: Mouth Piece, Nicotine* 1 EACH CARTRIDGE INH SCH (14:44)
--- NOTE | 2016-12-31 15:32 | PN ---
Subjective - Subjective Service Type: 77407 Hosp care 15 min low complexity Subjective: Maxi has a cut at the base of his index finger that looks to need medical attention for proper healing. Dr White agrees to see him in the morning. Maxi reports the delusion that there in a reversing connection between his jeans and his bed, consequently he is alternately placing the jeans on his bed and on the floor. He says he can tell there is something odd going on due to variation in the temperature of the button that closes the waist of his jeans. He reports that voices have told him how to manage the situation. He is sleeping on the floor. Maxi also believes he is receiving some sort of radio transmission, perhaps from implants in his ears. He says he can tell he is receiving them from the sound he hears when he plugs his ears with his fingers. He agrees to increasing his Thorazine dose against psychosis and insomnia. Objective - Appearance Appearance: Well Developed/Nourished Dysmorphic Features: No Hygiene: Normal Grooming: Disheveled - Behavior Psychomotor Activities: Normal Exhibits Abnormal Movement: No - Attitude and Relatedness Attitude and Relatedness: Psychotically Related Eye Contact: Good - Speech Quality: Unpressured Latencies: Normal Quantity: Appropriate - Mood Patient's Decription of Mood: "Pretty good except for the irritation on my feet. " - which he attributes to something on the floors on which he has been walking barefoot. - Affect Observed Affect: Constricted Affect Consistent with: Euthymia - Thought Process Patient's Thought Process: Disorganized Thought Content: Yes Paranoid Ideation, No Passive Wish, No Suicidal Planning, No Homicidal Ideation - Sensorium Type of Hallucinations: Visual: No, Auditory: Yes, Command: Yes - Level of Consciousness Level of Consciousness: Alert Orientation: Yes Intact, Yes Orientated to Time, Yes Orientated to Place, Yes Orientated to Person - Impulse Control Impulse Control: Intact - Insight and Judgement Insight and Judgement: Impaired - Group Participation Particating in Group Activities: Yes - Medication Management Medication Management Adherence: Partial - refusing metoprolol and refused last dose of lithium this morning after taking 5 doses over pase 3 days Assessment - Assessment Merits Inpatient Hospitalization: For Immediate Safety, For Stabilization, For Discharge Planning, Pending Safe DC Plan Inpatient DSM-IV Dx: Psychosis NOS. r/o substance-induced psychosis. reported today history of bipolar disorder Clinical Impression: Assumed care on day 2, 12.26.17: Maxi Dobson is a 41 year-old man admitted due to disorganized thought and behavior. He reports a history of abuse of alcohol and marijuana. He remains moderately disorganized today. He denies any dangerous intent or plan. He reports a restraining order in place from his girlfriend or , so contacting her might put him in jeopardy. We will be gathering collateral from his mother and friends as he permits. Continued hospitalization is indicated until he has adequately organized thought and behavior and thereby reduced risk of harm due to inadequate self-care. Day 3, 18.17: Maxi requests to start lithium, declines for now antipsychotic medications despite continued AH/?PI. More organized in conversation with me today. Day 12.28.17: Maxi continues to refuse effective medications against his psychotic presentation. He remains politely guarded. He is not attending groups. He feels he can get better by getting adequate sleep using Thorazine, despite having yesterday agreed to lithium as a medication that had been effective for him in the past. Day 12.29.17: Maxi reports today remission of AH/PI. He presents still somewhat guarded and poorly engaged in the interview. Day 12.30.17: Maxi is revealing more specific psychotic symptoms. He agrees to increased dose of Thorazine, though he refused lithium. Plan - Plan Treatment Plan: Name: MAXI DOBSON Birthdate: 1975 [id number] Increase thorazine to 100 mg at HS as standing dose. Encourage compliance with lithium 300 mg bid so that we can get useful test results on Monday. Monitor MS and safety. Encourage groups and milieu. Surgical consult requested for cut on finger, Dr Sage agrees to see him tomorrow morning about it, recommends bacitracin and dressing in the meantime, unlikely to benefit from stitches at this time. Medications: Current Medications Acetaminophen (Tylenol Tab*) 650 mg PO Q4H PRN PRN Reason: PAIN or TEMP > 101 F Al Hydrox/Mg Hydrox/Simethicone (Maalox Plus*) 30 ml PO Q4H PRN PRN Reason: INDIGESTION Atorvastatin Calcium (Lipitor*) 10 mg PO 1700 [facility] Last Admin: 12/30/16 16:11 Dose: 10 mg Chlorpromazine HCl (Thorazine Tab*) 50 mg PO Q6H PRN PRN Reason: AGITATION Last Admin: 12/29/16 21:24 Dose: 50 mg Device (Nicotine Mouth Piece*) 1 each INH .USE WITH NICOTROL PRN PRN Reason: CRAVING Last Admin: 12/24/16 13:31 Dose: 1 each Device (Nicotine Mouth Piece*) 1 each INH .CARTRIDGE [facility] Last Admin: 12/31/16 14:44 Dose: 1 each Diphenhydramine HCl (Benadryl Po*) 50 mg PO BEDTIME PRN PRN Reason: INSOMNIA Last Admin: 12/30/16 20:20 Dose: 50 mg [place] Carbonate ([place] Carbonate Tab*) 300 mg PO BID [facility] Last Admin: 12/31/16 10:36 Dose: Not Given Metoprolol Tartrate (Lopressor Tab*) 12.5 mg PO BID [facility] Last Admin: 12/31/16 09:25 Dose: Not Given Multivitamins (Theragran Tab*) 1 tab PO DAILY [facility] Last Admin: 12/31/16 09:25 Dose: Not Given Nicotine (Nicotine Inhaler*) 10 mg INH Q2H PRN PRN Reason: CRAVING Last Admin: 12/31/16 14:42 Dose: 10 mg Nicotine Polacrilex (Nicotine Gum*) 2 mg PO Q2H PRN PRN Reason: CRAVING Last Admin: 12/29/16 21:07 Dose: 2 mg - Discharge Plan Discharge Plan: [facility]
[2016-12-31] MEDS: Atorvastatin* 10 MG TAB PO SCH (16:39)
[2016-12-31] MEDS: chlorproMAZINE TAB* 100 MG PO SCH (20:24)
[2016-12-31] MEDS: Bacitracin OINTMENT* 1 TUBE TOPICAL SCH (20:56)
[2016-12-31] MEDS ORDERED: risperiDONE-M * 1 MG TAB.ORADIS PO ONE (21:43)
[2016-12-31] MEDS ORDERED: chlorproMAZINE TAB* 50 MG PO PRN (21:43)
[2017-01-01] MEDS: Mouth Piece, Nicotine* 1 EACH CARTRIDGE INH SCH (07:14)
[2017-01-01] MEDS: Nicotine Inhaler* 10 MG AMP INH PRN ×7 (07:15→20:47)
[2017-01-01] MEDS: Lithium Carbonate TAB* 300 MG PO SCH ×2 (08:40→21:44)
[2017-01-01] MEDS: Metoprolol Tartrate TAB* 25 MG PO SCH ×2 (08:40→21:45)
[2017-01-01] MEDS: Bacitracin OINTMENT* 1 TUBE TOPICAL SCH ×3 (08:40→22:41)
[2017-01-01] MEDS: Vitamin THERAPEUTIC TAB PO SCH (08:40)
[2017-01-01] MEDS: Nicotine GUM* 2 MG PO PRN ×3 (16:19→21:46)
[2017-01-01] MEDS: Atorvastatin* 10 MG TAB PO SCH (16:19)
[2017-01-01] MEDS: risperiDONE-M * 1 MG TAB.ORADIS PO SCH (21:06)
[2017-01-01] MEDS: chlorproMAZINE TAB* 100 MG PO SCH ×2 (21:44→22:34)
--- NOTE | 2017-01-01 21:56 | CONS ---
CONSULTATION REPORT: DATE OF CONSULTATION: 01/01/17 REFERRING PROVIDER: Ranjit Tilley NP. REASON FOR CONSULTATION: Laceration over the metacarpophalangeal joint on the right first finger. HISTORY OF PRESENT ILLNESS: Mr. Guillermo Schafer is a 41-year-old gentleman. He has been admitted to the behavioral care unit. It was noted that he had had a laceration over the proximal portion of his right finger. He said this happened several weeks ago when he was working. His hand slipped and scraped on a sharp or metallic object. He had several scrapes on his hands. They have been healing nicely. He has no complaints of this laceration and it does not cause any pain. There has been no redness or drainage. He has had no fevers. He has been keeping it open, washing it with soap and water as much as possible. PHYSICAL EXAMINATION: On exam on the right hand, there are no signs of swelling , redness, odor, or purulence. He has a chronic-appearing laceration with some callused skin surrounding it, with a fairly superficial opening along the proximal portion of the right dorsal surface of the proximal phalange. This is not deep and it has some cracked, dried skin surrounding it. There is no odor, purulence, redness, or fluctuance. This is nontender. He has full range of motion in the finger to both flexion and dorsiflexion. There is no sensory deficit. PLAN: I discussed options with him, one which includes keeping the area clean with soap and water on a daily basis, and covering the area with bacitracin and possible Band-Aid. He is not really interested in wearing a Band-Aid or a bandage to protect this and I suspect that this will heal well regardless of what treatment is performed at this time, especially in light of the fact there is no infection and it has been present for several weeks. No sutures are required. Thank you for your consultation call. Please call for any problems in the future. [id number]/[facility] #: [id number] CECILIO
[2017-01-02] MEDS ORDERED: Mouth Piece, Nicotine* 1 EACH CARTRIDGE ONE (08:36)
[2017-01-02] MEDS: Nicotine Inhaler* 10 MG AMP INH PRN ×4 (08:36→21:53)
[2017-01-02] MEDS: Lithium Carbonate TAB* 300 MG PO SCH ×2 (08:37→08:46)
[2017-01-02] MEDS: Bacitracin OINTMENT* 1 TUBE TOPICAL SCH ×2 (08:38→20:37)
[2017-01-02] MEDS: Metoprolol Tartrate TAB* 25 MG PO SCH ×2 (08:38→20:37)
[2017-01-02] MEDS: Vitamin THERAPEUTIC TAB PO SCH (08:39)
[2017-01-02] MEDS: Nicotine GUM* 2 MG PO PRN (12:37)
--- NOTE | 2017-01-02 13:59 | PN ---
MHU: Group Therapy Note - Service Type Service Type: [id number] Group Psychotherapy - Cognitive Behavioral Group Therapy ( CBT):Patient was attentive and participatory in CBT programming this morning, and remained in good behavioral control. Patient expressed positive insights regarding relevant treatment interventions and goals.
--- NOTE | 2017-01-02 15:29 | PN ---
Subjective - Subjective Service Type: [id number] Hosp care 15 min low complexity Subjective: Nursing staff found medications in Maxi's room, and he admitted to discarding medications. He has concerns the medications are poison (cyanide) per his mother. She advocates for trial of 5 mg dose Risperdal, which produced immediate effects in the past. Objective - Appearance Appearance: Well Developed/Nourished Dysmorphic Features: No Hygiene: Normal Grooming: Disheveled - Behavior Psychomotor Activities: Abnormal-Increased Exhibits Abnormal Movement: No - Attitude and Relatedness Attitude and Relatedness: Psychotically Related Eye Contact: Fair - Speech Quality: Unpressured Latencies: Normal Quantity: Terse - Mood Patient's Decription of Mood: "Good" - "and its getting better" - Affect Observed Affect: Tense Affect Consistent with: Dysphoria - Thought Process Patient's Thought Process: Coherent, Goal Directed Thought Content: Yes Paranoid Ideation, No Passive Wish, No Suicidal Planning, No Homicidal Ideation - Sensorium Experiencing Hallucinations: No, Sensorium is Clear Type of Hallucinations: Visual: No, Auditory: No, Command: No - Level of Consciousness Level of Consciousness: Alert Orientation: Yes Intact, Yes Orientated to Time, Yes Orientated to Place, Yes Orientated to Person - Impulse Control Impulse Control: Intact - Insight and Judgement Insight and Judgement: Impaired - Group Participation Particating in Group Activities: Yes - Medication Management Medication Management Adherence: No Assessment - Assessment Merits Inpatient Hospitalization: For Immediate Safety, For Stabilization, To Initiate Treatment, For Ongoing Evaluation, For Discharge Planning Inpatient DSM-IV Dx: Psychosis NOS. r/o substance-induced psychosis. reported today history of bipolar disorder Clinical Impression: Assumed care on day 2, 12.26.16: Maxi Dobson is a 41 year-old man admitted due to disorganized thought and behavior. He reports a history of abuse of alcohol and marijuana. He remains moderately disorganized today. He denies any dangerous intent or plan. He reports a restraining order in place from his girlfriend or , so contacting her might put him in jeopardy. We will be gathering collateral from his mother and friends as he permits. Continued hospitalization is indicated until he has adequately organized thought and behavior and thereby reduced risk of harm due to inadequate self-care. Day 317: Maxi requests to start lithium, declines for now antipsychotic medications despite continued AH/?PI. More organized in conversation with me today. Day , 17: Maxi continues to refuse effective medications against his psychotic presentation. He remains politely guarded. He is not attending groups. He feels he can get better by getting adequate sleep using Thorazine, despite having yesterday agreed to lithium as a medication that had been effective for him in the past. Day , 17: Maxi reports today remission of AH/PI. He presents still somewhat guarded and poorly engaged in the interview. Day , 12.30.17: Maxi is revealing more specific psychotic symptoms. He agrees to increased dose of Thorazine, though he refused lithium. Day 17: Maxi continues to show clear signs of disorganized thought and behavior to staff. He has not been taking meds, refusing them and discarding them after taking them and walking away from the med window. He has agreed now with me to take the Risperdal M-tabs and the lithium in liquid form. He has voiced reasonable apprehension about the safety of some other patients on the unit, but has also expressed paranoia with likely unreported delusional thoughts about the nurse Candido in particular. Plan - Plan Treatment Plan: Name: MAXI DOBSON Birthdate: 1975 [id number] D/C thorazine, replace with Risperdal M-tabs. Encourage compliance with lithium 300 mg bid in liquid form. Monitor MS and safety. Encourage groups and milieu. Surgical consult completed for cut on finger, appreciate Dr Sage' s kind attention to Maxi. Medications: Current Medications Acetaminophen (Tylenol Tab*) 650 mg PO Q4H PRN PRN Reason: PAIN or TEMP > 101 F Al Hydrox/Mg Hydrox/Simethicone (Maalox Plus*) 30 ml PO Q4H PRN PRN Reason: INDIGESTION Atorvastatin Calcium (Lipitor*) 10 mg PO 1700 [facility] Last Admin: 01/01/17 16:19 Dose: 10 mg Bacitracin (Bacitracin Ointment*) 1 applic TOPICAL BID [facility] Last Admin: 01/02/17 08:38 Dose: Not Given Chlorpromazine HCl (Thorazine Tab*) 100 mg PO BEDTIME [facility] Last Admin: 01/01/17 22:34 Dose: 100 mg Chlorpromazine HCl (Thorazine Tab*) 50 mg PO Q4H PRN PRN Reason: AGITATION Device (Nicotine Mouth Piece*) 1 each INH .USE WITH NICOTROL PRN PRN Reason: CRAVING Last Admin: 12/24/16 13:31 Dose: 1 each Device (Nicotine Mouth Piece*) 1 each INH .[facility] Last Admin: 01/01/17 07:14 Dose: 1 each Diphenhydramine HCl (Benadryl Po*) 50 mg PO BEDTIME PRN PRN Reason: INSOMNIA Last Admin: 12/30/16 20:20 Dose: [address] [place] Carbonate ([place] Carbonate Tab*) 300 mg PO BID [facility] Last Admin: 01/02/17 08:46 Dose: Not Given Metoprolol Tartrate (Lopressor Tab*) 12.5 mg PO BID [facility] Last Admin: 01/02/17 08:38 Dose: Not Given Multivitamins (Theragran Tab*) 1 tab PO DAILY [facility] Last Admin: 01/02/17 08:39 Dose: Not Given Nicotine (Nicotine Inhaler*) 10 mg INH Q2H PRN PRN Reason: CRAVING Last Admin: 01/02/17 08:36 Dose: 10 mg Nicotine Polacrilex (Nicotine Gum*) 2 mg PO Q2H PRN PRN Reason: CRAVING Last Admin: 01/02/17 12:37 Dose: 2 mg Risperidone (Risperdal-M Tab *) 2 mg PO BEDTIME [facility] PRN Reason: Protocol Last Admin: 01/01/17 21:06 Dose: 2 mg - Discharge Plan Discharge Plan: Outpatient Follow Up
[2017-01-02] MEDS: Mouth Piece, Nicotine* 1 EACH CARTRIDGE INH SCH (15:35)
[2017-01-02] MEDS: Atorvastatin* 10 MG TAB PO SCH (16:50)
[2017-01-02] MEDS: Lithium LIQ* 300 MG/5 ML UDC PO SCH (20:36)
[2017-01-02] MEDS: risperiDONE-M * 1 MG TAB.ORADIS PO SCH (20:37)
[2017-01-03] MEDS: Lithium LIQ* 300 MG/5 ML UDC PO SCH ×2 (08:58→21:22)
[2017-01-03] MEDS: Metoprolol Tartrate TAB* 25 MG PO SCH ×2 (08:58→21:23)
[2017-01-03] MEDS: Vitamin THERAPEUTIC TAB PO SCH (08:58)
[2017-01-03] MEDS: Bacitracin OINTMENT* 1 TUBE TOPICAL SCH ×2 (09:00→21:25)
[2017-01-03] MEDS: Nicotine Inhaler* 10 MG AMP INH PRN ×4 (11:00→21:21)
--- NOTE | 2017-01-03 11:05 | PN ---
MHU: Group Therapy Note - Service Type Service Type: [id number] Group Psychotherapy - Cognitive Behavioral Group Therapy ( CBT):Patient was attentive and participatory in CBT programming this morning, and remained in good behavioral control. Patient expressed positive insights regarding relevant treatment interventions and goals.
[2017-01-03] MEDS: Atorvastatin* 10 MG TAB PO SCH (16:37)
[2017-01-03] MEDS: Nicotine GUM* 2 MG PO PRN (18:52)
[2017-01-03] MEDS: risperiDONE-M * 1 MG TAB.ORADIS PO SCH (21:22)
[2017-01-04] MEDS: Nicotine Inhaler* 10 MG AMP INH PRN ×5 (07:04→22:09)
[2017-01-04] MEDS: Metoprolol Tartrate TAB* 25 MG PO SCH ×2 (08:39→20:25)
[2017-01-04] MEDS: Vitamin THERAPEUTIC TAB PO SCH (08:39)
[2017-01-04] MEDS: Bacitracin OINTMENT* 1 TUBE TOPICAL SCH ×2 (08:41→22:59)
[2017-01-04] MEDS: Lithium LIQ* 300 MG/5 ML UDC PO SCH ×2 (08:41→20:25)
[2017-01-04] MEDS: Nicotine GUM* 2 MG PO PRN ×3 (09:14→18:26)
--- NOTE | 2017-01-04 13:15 | PN ---
Subjective - Subjective Service Type: [id number] Hosp care 15 min low complexity Subjective: Maxi reports today improved mental status, with remission of psychosis and feeling 'even keeled'. He has no physical complaints. Objective - Appearance Appearance: Healthy Appearing Dysmorphic Features: No Hygiene: Normal Grooming: Well Kept - Behavior Psychomotor Activities: Normal Exhibits Abnormal Movement: No - Attitude and Relatedness Attitude and Relatedness: Cooperative Eye Contact: Good - Speech Quality: Unpressured Latencies: Normal Quantity: Appropriate - Mood Patient's Decription of Mood: "Pretty even-keeled" - Affect Observed Affect: Fair Affect Consistent with: Euthymia - Thought Process Patient's Thought Process: Coherent, Goal Directed Thought Content: No Passive Wish, No Suicidal Planning, No Homicidal Ideation, No Paranoid Ideation - Sensorium Experiencing Hallucinations: No, Sensorium is Clear Type of Hallucinations: Visual: No, Auditory: No, Command: No - Level of Consciousness Level of Consciousness: Alert Orientation: Yes Intact, Yes Orientated to Time, Yes Orientated to Place, Yes Orientated to Person - Impulse Control Impulse Control: Intact - Insight and Judgement Insight and Judgement: Fair - Group Participation Particating in Group Activities: Yes - Medication Management Medication Management Adherence: Yes Assessment - Assessment Merits Inpatient Hospitalization: Consolidate Improvements, For Discharge Planning Inpatient DSM-IV Dx: bipolar disorder, manic with psychosis Clinical Impression: Assumed care on day 2, 17: Maxi Dobson is a 41 year-old man admitted due to disorganized thought and behavior. He reports a history of abuse of alcohol and marijuana. He remains moderately disorganized today. He denies any dangerous intent or plan. He reports a restraining order in place from his girlfriend or , so contacting her might put him in jeopardy. We will be gathering collateral from his mother and friends as he permits. Continued hospitalization is indicated until he has adequately organized thought and behavior and thereby reduced risk of harm due to inadequate self-care. Day 3, 12.27.17: Maxi requests to start lithium, declines for now antipsychotic medications despite continued AH/?PI. More organized in conversation with me today. Day 4, 12.28.17: Maxi continues to refuse effective medications against his psychotic presentation. He remains politely guarded. He is not attending groups. He feels he can get better by getting adequate sleep using Thorazine, despite having yesterday agreed to lithium as a medication that had been effective for him in the past. Day 12.29.16: Maxi reports today remission of AH/PI. He presents still somewhat guarded and poorly engaged in the interview. Day 12.30.16: Maxi is revealing more specific psychotic symptoms. He agrees to increased dose of Thorazine, though he refused lithium. Day 01.02.17: Maxi continues to show clear signs of disorganized thought and behavior to staff. He has not been taking meds, refusing them and discarding them after taking them and walking away from the med window. He has agreed now with me to take the Risperdal M-tabs and the lithium in liquid form. He has voiced reasonable apprehension about the safety of some other patients on the unit, but has also expressed paranoia with likely unreported delusional thoughts about the nurse Candido in particular. Day 01.04.17 Maxi appears better organized today. He has been med compliant. His subjective report is that he has had full remission of hallucinations. HIs mother has previously expressed concern about his history of being able to present as well when he is not. Will continue to monitor toward at least 48 hours free of report or sign of psychosis before contemplating discharge. HE still has an 'edgy' presentation suggesting unreported continued delusions/ paranoia versus ongoing anxiety. Plan - Plan Treatment Plan: Name: MAXI DOBSON Birthdate: 1975 [id number] Continue Risperdal M-tabs at 4 mg and lithium 300 mg bid in liquid form. Check Li+ level. Monitor MS and safety. Encourage groups and milieu. Medications: Current Medications Acetaminophen (Tylenol Tab*) 650 mg PO Q4H PRN PRN Reason: PAIN or TEMP > 101 F Al Hydrox/Mg Hydrox/Simethicone (Maalox Plus*) 30 ml PO Q4H PRN PRN Reason: INDIGESTION Atorvastatin Calcium (Lipitor*) 10 mg PO 1700 [facility] Last Admin: 01/03/17 16:37 Dose: 10 mg Bacitracin (Bacitracin Ointment*) 1 applic TOPICAL BID [facility] Last Admin: 01/04/17 08:41 Dose: Not Given Device (Nicotine Mouth Piece*) 1 each INH .USE WITH NICOTROL PRN PRN Reason: CRAVING Last Admin: 12/24/16 13:31 Dose: 1 each Device (Nicotine Mouth Piece*) 1 each INH [facility] Last Admin: 01/02/17 15:35 Dose: 1 each Diphenhydramine HCl (Benadryl Po*) 50 mg PO BEDTIME PRN PRN Reason: INSOMNIA Last Admin: 01/02/17 23:09 Dose: 50 mg [place] Citrate ([place] Liq*) 300 mg PO BID [facility] Last Admin: 01/04/17 08:41 Dose: 300 mg Metoprolol Tartrate (Lopressor Tab*) 12.5 mg PO BID [facility] Last Admin: 01/04/17 08:39 Dose: 12.5 mg Multivitamins (Theragran Tab*) 1 tab PO DAILY [facility] Last Admin: 01/04/17 08:39 Dose: 1 tab Nicotine (Nicotine Inhaler*) 10 mg INH Q2H PRN PRN Reason: CRAVING Last Admin: 01/04/17 11:20 Dose: 10 mg Nicotine Polacrilex (Nicotine Gum*) 2 mg PO Q2H PRN PRN Reason: CRAVING Last Admin: 01/04/17 09:14 Dose: 2 mg Risperidone (Risperdal-M Tab *) 4 mg PO BEDTIME [facility] PRN Reason: Protocol Last Admin: 01/03/17 21:22 Dose: 4 mg - Discharge Plan Discharge Plan: Outpatient Follow Up
--- NOTE | 2017-01-04 14:07 | PN ---
MHU: Group Therapy Note - Service Type Service Type: [id number] Group Psychotherapy - Cognitive Behavioral Group Therapy ( CBT):Patient was attentive and participatory in CBT programming this morning, and remained in good behavioral control. Patient expressed positive insights regarding relevant treatment interventions and goals.
[2017-01-04] MEDS: Atorvastatin* 10 MG TAB PO SCH (18:26)
[2017-01-04] MEDS: risperiDONE-M * 1 MG TAB.ORADIS PO SCH (22:06)
[2017-01-05] MEDS: Nicotine Inhaler* 10 MG AMP INH PRN ×6 (07:08→22:36)
[2017-01-05] MEDS: Metoprolol Tartrate TAB* 25 MG PO SCH ×2 (09:55→20:29)
[2017-01-05] MEDS: Vitamin THERAPEUTIC TAB PO SCH (09:55)
[2017-01-05] MEDS: Lithium LIQ* 300 MG/5 ML UDC PO SCH ×3 (09:56→20:30)
[2017-01-05] MEDS: Bacitracin OINTMENT* 1 TUBE TOPICAL SCH ×2 (09:59→20:30)
[2017-01-05] MEDS: Nicotine GUM* 2 MG PO PRN ×2 (10:13→16:10)
--- NOTE | 2017-01-05 11:58 | PN ---
MHU: Group Therapy Note - Service Type Service Type: [id number] Group Psychotherapy - Cognitive Behavioral Group Therapy ( CBT):Patient was attentive and participatory in CBT programming this morning, and remained in good behavioral control. Patient expressed positive insights regarding relevant treatment interventions and goals.
--- NOTE | 2017-01-05 16:06 | PN ---
Progress Note - Progress Note Note: Discussion on treatment team of q30 checks and staff pass reached consensus in favor of both, and both have been ordered.
[2017-01-05] MEDS: Mouth Piece, Nicotine* 1 EACH CARTRIDGE INH SCH (17:40)
[2017-01-05] MEDS: Atorvastatin* 10 MG TAB PO SCH (17:41)
[2017-01-05] MEDS: risperiDONE-M * 1 MG TAB.ORADIS PO SCH (20:29)
[2017-01-06] MEDS: Bacitracin OINTMENT* 1 TUBE TOPICAL SCH (07:58)
[2017-01-06] MEDS: Vitamin THERAPEUTIC TAB PO SCH (07:58)
[2017-01-06] MEDS: Metoprolol Tartrate TAB* 25 MG PO SCH (07:59)
[2017-01-06] MEDS: Lithium LIQ* 300 MG/5 ML UDC PO SCH ×2 (07:59→13:09)
[2017-01-06] MEDS: Nicotine Inhaler* 10 MG AMP INH PRN ×3 (08:00→12:19)
[2017-01-06 08:47] VITALS: BP 105/68
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
== END 2017-01-06 13:45 | disposition home or self-care (01) | DRG 885 ==
LOC: ED 09:25 → BSU 19:24
PROVIDERS: ADMIT Internal Medicine; ATTEND Psychiatry & Neurology Psychiatry
PROC: GZHZZZZ Group Psychotherapy (ICD-10-PCS; principal; 2016-12-29)
DX: F31.2 Bipolar disorder, current episode manic severe with psychotic features (principal); E78.5 Hyperlipidemia, unspecified; R00.2 Palpitations; F90.9 Attention-deficit hyperactivity disorder, unspecified type; F14.90 Cocaine use, unspecified, uncomplicated; F12.90 Cannabis use, unspecified, uncomplicated; F17.200 Nicotine dependence, unspecified, uncomplicated; W01.118A Fall on same level from slipping, tripping and stumbling with subsequent striking against other sharp object, initial encounter; S61.210A Laceration without foreign body of right index finger without damage to nail, initial encounter; Z81.8 Family history of other mental and behavioral disorders; Z81.1 Family history of alcohol abuse and dependence; Z72.89 Other problems related to lifestyle; Z56.0 Unemployment, unspecified; Y92.9 Unspecified place or not applicable
CPT/HCPCS: 36415; 80053; 80178; 80307; 80320; 80329; 81003; 81015; 84443; 85025; 90853; 99222; 99231; 99232; 99238; 99406; A9270-GY; G0480